=== PATIENT | female | born 1970 | race Caucasian/White ===

== ENCOUNTER 2016-10-19 22:48 | Inpatient (IN) | payer OTHER ==
[~2016-10-19] VITALS: Ht 154.9 cm; Wt 56.0 kg
--- NOTE | 2016-10-19 23:28 | DIAGNOSTIC IMAGING REPORT ---
PROCEDURE: XR ANKLE 3 OR 4 VIEWS - RIGHT INDICATION: TRAUMA/INJURY TECHNIQUE: Four views. COMPARISON: None. FINDINGS: There is a severely comminuted fracture of malleolar fracture with one third bone width of posterior lateral subluxation of the mortise joint. There is a comminuted spiral oblique fracture of the right distal fibula with 5 mm of posterior lateral displacement. There is an oblique fracture of the medial malleolus with 5 mm of lateral displacement and mild distraction. There is a minimally displaced cortical fracture of the posterior malleolus. IMPRESSION: 1. Severely comminuted and displaced trimalleolar fracture subluxation of the right ankle
[2016-10-20] VITALS (13 sets, daily range): BP systolic 94–146; BP diastolic 55–93
--- NOTE | 2016-10-20 01:43 | ED MAR SUMMARY ---
..... Medication Administration Record [facility] [address] [place] [address] Patient: BABS LOPEZ Visit ID: [id number] 45y, F Weight: 53.9 kg Height/Length: 61 in BMI: 22.5 ALLERGIES: No Known Drug Allergy Given 23:10 10/19/2016 Diomedes Dwyer Medication Administered: PERCOCET [PO] (OXYCODONE-ACETAMINOPHEN), Dose: 1 tab 5/325 mg Tablets PO. Medication Ordered: Percocet PO 5/325 mg (HIGH ALERT MEDICATION, NOW).
--- NOTE | 2016-10-20 01:43 | ED MED RECONCILIATION SUMMARY ---
Patient: BABS LOPEZ Medication Reconciliation Report [facility] VisitID: [id number] [address] [place] [address] 45y, F Registration Date/Time: 10/19/2016 Weight: 53.9 kg Height/Length: 61 in. BMI: 22.5 ALLERGIES: No Known Drug Allergy The patient's Home Medications are listed below: NONE. The source(s) of the original Home Medication information: Not obtained. The following Medications were given to the patient in the Emergency Department: Percocet [PO] PO 1 tab, administered: 10/19/2016 11:10:00 PM The following Medications were prescribed to the patient: None.
--- NOTE | 2016-10-20 01:43 | ED MED RECONCILIATION SUMMARY ---
Patient: BABS LOPEZ Medication Reconciliation Report [facility] VisitID: [id number] [address] [place] [address] 45y, F Registration Date/Time: 10/19/2016 Weight: 53.9 kg Height/Length: 61 in. BMI: 22.5 ALLERGIES: No Known Drug Allergy The patient's Home Medications are listed below: NONE. The source(s) of the original Home Medication information: Not obtained. The following Medications were given to the patient in the Emergency Department: Percocet [PO] PO 1 tab, administered: 10/19/2016 11:10:00 PM The following Medications were prescribed to the patient: None.
--- NOTE | 2016-10-20 01:43 | ED NURSING NOTES ---
Clinical Report - Nurses [facility] [address] [place] [address] 10/19/2016 22:50 Patient: BABS LOPEZ TRIAGE Triage time 23:00. Chief Complaint: INJURY TO RIGHT ANKLE. --23:02 Diomedes Dwyer 23:02 10/19/16. BP: 127/73. HR: 72. RR: 16. O2 saturation: 99%. Temp: 97.6 F. Pain level now: 02/07. --23:03 Ben Dwyer. Weight: 53.9 kg. Height/Length: 61 inches. BMI: 22.5. --23:01 Ben Dwyer. Medications None. --23:02 Diomedes Dwyer Allergies No Known Drug Allergy. --23:02 Diomedes Dwyer History Arrived by private vehicle. Historian: patient. Accompanied by family. This occurred just prior to arrival. Mechanism of injury: fell. Treatment TRAVEL OT: None. SOCIAL HX: Light tobacco smoker. Occasional alcohol use. No drug use. No infectious disease exposure. SELF HARM ASSESSMENT: A self harm assessment was performed. The patient answered "no" to the question "Have you recently felt down, depressed, or hopeless?", "Have you noticed less interest or pleasure in doing things?", "Do you have thoughts of harming or killing yourself?", "Are you here because you tried to hurt yourself?", "Have you ever tried to hurt yourself before today?", "Have you recently had thoughts about harming or killing others?" and "Do you have any dangerous items in your possession?". FALL RISK ASSESSMENT: Fall risk assessment completed. No fall risk identified. NUTRITIONAL RISK ASSESSMENT: The nutritional risk assessment revealed no deficiencies. FUNCTIONAL ASSESSMENT: Functional assessment: no impairments noted. LEARNING NEEDS ASSESSMENT: The learning needs assessment revealed no barriers. SKIN INTEGRITY ASSESSMENT: Skin integrity risk assessment completed. No skin integrity risk identified. --23:02 Diomedes Dwyer ( pt states she was playing in the yard and tripped and fell and twisted her ankle around 1800 today). --23:03 Diomedes Dwyer PROBLEMS: no known problems. ADDITIONAL SURGERIES: no known surgeries. PHYSICAL ASSESSMENT To room via wheelchair. GENERAL / NEURO / PSYCH: Oriented X 4. Alert. Appears in no acute distress. EXTREMITIES: Limited ROM present. Capillary refill is less than 2 seconds in the extremities. Extremity pulses are within normal limits. She was unable to bear weight. Neuro-vascular status intact to the extremity. Right ankle: tenderness, swelling and erythema. SKIN: Skin intact. Skin is warm and dry. --23:04 Ben Dwyer. NURSING PROGRESS NOTES Patient identifiers checked. Call light placed in reach. Side rails up x 1. Bed placed in lowest position. Brakes of bed on. --23:04 Diomedes Dwyer ( ice applied to site). --23:04 Diomedes Dwyer 23:10 10/19/2016 Percocet (Oxycodone-Acetaminophen) PO 5/325 mg Tablets 1 tab given. Allergies verified, confirmed 5 rights and sedative warning given to the patient and patient's family. --23:10 Diomedes Dwyer 00:14 10/20/2016 Site #1 started via IV in the right antecubital space with an 20g angiocath, with aseptic technique and good blood return; one attempt. Blood drawn: rainbow set. Labeled in the presence of the patient and sent to the lab. Saline lock flushed with 10 mL saline. --00:14 Ben Dwyer. Patient gowned. --00:14 Diomedes Dwyer ( urine sent to lab). --00:23 Ben Dwyer. Short leg lower extremity splint applied to right leg by tech. Distal pulses intact, sensation intact and motor within normal limits. --01:28 Diomedes Dwyer DISPOSITION / DISCHARGE Report was given to a nurse via a phone call. Report included patient's care, treatment, medications, reviewed medication reconcilliation, and condition (including any recent changes or anticipated changes). All questions were answered. Report was acknowledged and care was transferred. (Padma). --01:36 Diomedes Dwyer Transported via wheelchair by transport team. Patient's personal items include: shirt; items were placed in belongings bag, given to the patient and transported with the patient. --01:41 Diomedes Dwyer 01:41 10/20/16. BP: deferred. HR: 72. RR: 17. O2 saturation: 97%. Temp: deferred. Pain level now 09/07. --01:41 Diomedes Dwyer Departure time: :. --01:41 Diomedes Dwyer Locked/Released at 10/20/2016 1:42 by Diomedes Dwyer
--- NOTE | 2016-10-20 01:43 | ED NURSING NOTES ---
Clinical Report - Nurses [facility] [address] [place] [address] 10/19/2016 22:50 Patient: BABS LOPEZ TRIAGE Triage time 23:00. Chief Complaint: INJURY TO RIGHT ANKLE. --23:02 Diomedes Dwyer 23:02 10/19/16. BP: 127/73. HR: 72. RR: 16. O2 saturation: 99%. Temp: 97.6 F. Pain level now: 02/07. --23:03 Ben Dwyer. Weight: 53.9 kg. Height/Length: 61 inches. BMI: 22.5. --23:01 Ben Dwyer. Medications None. --23:02 Diomedes Dwyer Allergies No Known Drug Allergy. --23:02 Diomedes Dwyer History Arrived by private vehicle. Historian: patient. Accompanied by family. This occurred just prior to arrival. Mechanism of injury: fell. Treatment CLINICAL CYTOPATHOLOGIST: None. SOCIAL HX: Light tobacco smoker. Occasional alcohol use. No drug use. No infectious disease exposure. SELF HARM ASSESSMENT: A self harm assessment was performed. The patient answered "no" to the question "Have you recently felt down, depressed, or hopeless?", "Have you noticed less interest or pleasure in doing things?", "Do you have thoughts of harming or killing yourself?", "Are you here because you tried to hurt yourself?", "Have you ever tried to hurt yourself before today?", "Have you recently had thoughts about harming or killing others?" and "Do you have any dangerous items in your possession?". FALL RISK ASSESSMENT: Fall risk assessment completed. No fall risk identified. NUTRITIONAL RISK ASSESSMENT: The nutritional risk assessment revealed no deficiencies. FUNCTIONAL ASSESSMENT: Functional assessment: no impairments noted. LEARNING NEEDS ASSESSMENT: The learning needs assessment revealed no barriers. SKIN INTEGRITY ASSESSMENT: Skin integrity risk assessment completed. No skin integrity risk identified. --23:02 Diomedes Dwyer ( pt states she was playing in the yard and tripped and fell and twisted her ankle around 1800 today). --23:03 Diomedes Dwyer PROBLEMS: no known problems. ADDITIONAL SURGERIES: no known surgeries. PHYSICAL ASSESSMENT To room via wheelchair. GENERAL / NEURO / PSYCH: Oriented X 4. Alert. Appears in no acute distress. EXTREMITIES: Limited ROM present. Capillary refill is less than 2 seconds in the extremities. Extremity pulses are within normal limits. She was unable to bear weight. Neuro-vascular status intact to the extremity. Right ankle: tenderness, swelling and erythema. SKIN: Skin intact. Skin is warm and dry. --23:04 Ben Dwyer. NURSING PROGRESS NOTES Patient identifiers checked. Call light placed in reach. Side rails up x 1. Bed placed in lowest position. Brakes of bed on. --23:04 Diomedes Dwyer ( ice applied to site). --23:04 Diomedes Dwyer 23:10 10/19/2016 Percocet (Oxycodone-Acetaminophen) PO 5/325 mg Tablets 1 tab given. Allergies verified, confirmed 5 rights and sedative warning given to the patient and patient's family. --23:10 Diomedes Dwyer 00:14 10/20/2016 Site #1 started via IV in the right antecubital space with an 20g angiocath, with aseptic technique and good blood return; one attempt. Blood drawn: rainbow set. Labeled in the presence of the patient and sent to the lab. Saline lock flushed with 10 mL saline. --00:14 Ben Dwyer. Patient gowned. --00:14 Diomedes Dwyer ( urine sent to lab). --00:23 Ben Dwyer. Short leg lower extremity splint applied to right leg by tech. Distal pulses intact, sensation intact and motor within normal limits. --01:28 Diomedes Dwyer DISPOSITION / DISCHARGE Report was given to a nurse via a phone call. Report included patient's care, treatment, medications, reviewed medication reconcilliation, and condition (including any recent changes or anticipated changes). All questions were answered. Report was acknowledged and care was transferred. (Padma). --01:36 Diomedes Dwyer Transported via wheelchair by transport team. Patient's personal items include: shirt; items were placed in belongings bag, given to the patient and transported with the patient. --01:41 Diomedes Dwyer 01:41 10/20/16. BP: deferred. HR: 72. RR: 17. O2 saturation: 97%. Temp: deferred. Pain level now 09/07. --01:41 Diomedes Dwyer Departure time: :. --01:41 Diomedes Dwyer Locked/Released at 10/20/2016 1:42 by Diomedes Dwyer
--- NOTE | 2016-10-20 01:43 | ED MAR SUMMARY ---
..... Medication Administration Record [facility] [address] [place] [address] Patient: BABS LOPEZ Visit ID: [id number] 45y, F Weight: 53.9 kg Height/Length: 61 in BMI: 22.5 ALLERGIES: No Known Drug Allergy Given 23:10 10/19/2016 Diomedes Dwyer Medication Administered: PERCOCET [PO] (OXYCODONE-ACETAMINOPHEN), Dose: 1 tab 5/325 mg Tablets PO. Medication Ordered: Percocet PO 5/325 mg (HIGH ALERT MEDICATION, NOW).
--- NOTE | 2016-10-20 03:00 | HISTORY AND PHYSICAL ---
ADMITTED: 10/20/2016 CHIEF COMPLAINT: 1. Pain in the right ankle HISTORY OF PRESENT ILLNESS: This 45-year-old woman admits that she had several beers and some drinks of an alcoholic liquor called Fireball and was running around and felt a crack in her ankle and had severe pain in the right ankle. She was transported to our emergency department where x-rays have revealed a displaced comminuted bimalleolar ankle fracture. She is being admitted for that problem. Prior to suffering the fracture, she was able to walk without any walking aids and without any difficulty. She denies having any conditions which led to her having a weakened gait or limp. MEDICAL/SURGICAL HISTORY: She denies any history of surgery. She denies a medical history of any chronic disease. MEDICATIONS: ------- ALLERGIES: 1. SHE DENIES ANY ALLERGIES TO MEDICATIONS. SOCIAL HISTORY: As mentioned above. She is a 5-[id number]-day smoker and she admits to drinking two or three 22-ounce beers a day. She denies other liquor. She denies illicit drugs. FAMILY HISTORY: Unrelated to a right ankle fracture. REVIEW OF SYSTEMS: She denies a history of seizure, stroke or syncope. She denies a history of myocardial infarction, chest pain on exertion, or an irregular heartbeat. She has had some palpitations in the past, but that was years ago and there was no workup done. She denies a history of asthma, tuberculosis or recent pneumonia. She did have a bronchitis 3 weeks ago. She has a 13-[id number]-[id number] history of smoking cigarettes, smoking 1 pack per day between age 16 and presently. She has a history of diarrhea, 3 or 4 bowel movements a day for the last several weeks. She denies a history of hepatitis, pancreatitis, colitis. She denies a history of diabetes or hyperthyroidism. She denies a history of anemia, thrombocytopenia, bleeding disorders, or any history of cancer. PHYSICAL EXAMINATION: GENERAL: Shows a well-nourished, well-developed woman, alert, oriented, not in acute distress. HEENT: Her head is normocephalic, atraumatic. NECK: Supple and has no bruits. HEART: Regular, without murmur, rub, or gallop. LUNGS: Clear to auscultation throughout the lung selby without adventitious sounds, but with normal breath sounds. ABDOMEN: Without tenderness, masses, or organomegaly. EXTREMITIES: Both legs have multiple bruises. The right ankle is swollen, only moderately so. There is no tented skin. There are no open wounds. There is an excellent dorsalis pedis pulse. She has sensation in all of the toes. There is marked tenderness of the right ankle malleoli. LAB/IMAGING: Imaging studies: Right ankle x-ray taken in the right AP, lateral, and obliques shows a bimalleolar ankle fracture with lateral displacement of the talus and posterior displacement of the talus. There is comminution of the fibular fracture. Laboratory data: White count is 8000, hemoglobin 14, platelets 265,000. Basic metabolic profile shows a sodium of 142, potassium 4.3, chloride 105, carbon dioxide 25, calcium 8.5, BUN 9, creatinine 0.6, glucose 111. Plan: In the emergency department, the patient was placed in a posterior mold. Chest x-ray is being obtained. EKG shows normal sinus rhythm and a normal EKG. IMPRESSION: 1. Bimalleolar ankle fracture, displaced and comminuted. 2. A 09-[id number] smoker. 3. A month-history of diarrhea 3 or 4 times daily. PLAN: I requested a medical consultation preoperatively largely because of the history of diarrhea, which was new but prolonged. I explained the risks and benefits of open reduction and internal fixation of the ankle for a better result in terms of preventing arthritic change and a better chance of a painless ankle. I told her there is about a 20% chance she will have persistent pain. She may require removal of hardware in the future. I will go ahead with surgery today if the patient is medically cleared.
--- NOTE | 2016-10-20 03:27 | Consultation Report ---
Admission Admit Date Date of consultation 10/20/16 Surgical intervention planned for 10/20/2016. History Chief Complaint Right lower extremity pain with associated ankle/ malleolus fracture Diarrhea History of Present Illness Consultation Consulting; Black Bill M.D. Attending; Dr. Papito Wesley MD Reason for consultation: Preop risk stratification in the setting of alcohol and nicotine use Subjective history of loose stool, diarrhea for one week. Note Date: October 20, 2016 Admission Date: October 20, 2016 Hospital Day: 1 PCP: CARLOS A Alexander; Edgar Yi MD Status: observation Advanced Directive: FULL CODE Room: 202 Brief History: The patient is a 45-year-old white female with a significant past medical history of depression, anxiety, perhaps generalized anxiety disorder, prolonged smoking and alcohol use who presented to [facility] emergency department on the day of admission secondary to complaints of right lower extremity pain secondary to trauma. Evaluation at that time was consistent with tri-malleoli fracture with displacement of the right ankle joint. Patient was admitted by orthopedic surgery who planned on stabilizing the fracture on 10/20/2016. In addition to the above, patient had recent onset of acute diarrhea. Also history of prolonged smoking and alcohol use. Orthopedic consulted Internal Medicine given the medical complexity and need for recommended risk stratification for orthopedic surgical procedure. The patient was admitted by Papito Wesley M.D. for further evaluation and treatment. This pleasant female who had a recent onset of loose stool and diarrhea. She reported that the stool is nonbilious, nonbloody. She has frequent movements, mostly in the morning. Patient has no associated pain with defecation. The diarrhea is not voluminous, nonbloody, but frequent. Patient reports that she has not been eating well and has not been well supported nutritionally over the past several months. Patient states that she's been under additional stress due to the lack of work and home environment. Patient reports that she's been increasing her alcohol use over the past 3 months. Patient reports that she's had consistently 2-3 beers per day for the past 3 months. Patient reports that she needs to decrease her alcohol use and Epogen above. Patient denies a significant problem with alcohol use. Patient has no history of DTs or alcohol withdrawal symptoms or complications. Patient has never been involved in outpatient or inpatient alcohol withdrawal care. Patient reports that she's been smoking now for nearly 30 years. She smokes nearly a pack a day at this point in time. 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 Patient requests: None Patient History 1. Bimalleolar fracture of right ankle 2. Diarrhea 3. Alcohol use 4. Smoking addiction Social History PAST MEDICAL HISTORY Illnesses: 1. Depression, anxiety Allergies: 1. NKDA Medications: 1. none Surgery: 1. none Injuries: 1. right ankle and foot; see hpi Hospitalizations: 1. none FAMILY HISTORY Parents: 1. Father, 70's good health, 2. Mother, 70's , Alzheimer's Siblings: 1. Sister healthy Children: 1. Daughter 20 years old; Other significant family history: None SOCIAL HISTORY 1. Marital Status: Single/ 2. Employment History: [employer] 45 years, retired 2 years 3. Occupational health exposures: Dust, asbestos, lead, loud noises, heavy lifting HABITS 1. Tobacco: Currently smokes 1 pack per day for 20 years 2. Drugs: No prior or recent drug use 3. 2-3 beers per day for the past 2-3 months; prolonged more than 10 year alcohol use HEALTH SUPERVISION Item/Test Unknown IMMUNIZATIONS: 1. Pneumococcal: No previous 2. Influenza: Unknown 3. Tetanus: Unknown ADVANCED DIRECTIVES: 1. Living well: No 2. POLST: No 3. Code Status: FULL CODE 4. Durable Power Reporting Consultant Health care: Unknown Advance Directive None (Full Code) Health Maintenance unknown Medications and Allergies Medications Current Medications Sig/Lisbeth Start time Last Medication Dose Route Stop Time Status Admin Nicotine 21 MG QAM 10/20 0300 AC 10/20 TOP 0241 Sodium Chloride 1,000 ML ASDIRECTED 10/20 0245 AC 10/20 IV 0241 Oxycodone/ 1 TAB Q3H PRN 10/20 0130 AC Acetaminophen PO Morphine Sulfate See Dose Q4H PRN 10/20 0015 AC Insts (1) IV Ondansetron HCl 4 MG Q8H PRN 10/20 0015 AC IV Dose Instructions: (1)Morphine Sulfate: 2 - 4 MG Allergies Coded Allergies: NKA (10/20/16) Review of Systems Constitutional Denies: Fever, Chills, Sweats. Eyes Denies: Conjunctival Inflammation, Eyelid Inflammation. ENT Denies: Ear Discharge, Nose Pain. Respiratory Denies: SOB w/exertion, Wheezing. Cardiovascular Denies: Palpitations, Orthopnea. Gastrointestinal Diarrhea. Genitourinary Denies: Frequency, Incontinence, Hematuria. Skin Bruising (lower extremity). Neurological Denies: Weakness, Numbness, Seizures. Other Patient has a one pack per day history of 20 years. Currently drinking 20 ounce beers, 2-3 per day for the past 3 months. She reports that her diabetes been less than adequate. She has reports of depression. Patient is not currently working and is in a home situation is not ideal for her lifestyle. Physical Exam Vital Signs / I&Os Vital Signs Date Time Temp Pulse Resp B/P Pulse O2 O2 Flow FiO2 Ox Delivery Rate 10/20 0225 97.9 74 18 99/66 96 General Appearance Oriented X3, Cooperative, No acute distress HEENT Atraumatic, PERRLA, EOMI Lungs Clear to auscultation, Normal air movement Neck Supple, No JVD Cardiovascular Regular rate and rhythm, Normal S1 and S2 Abdomen Normal bowel sounds, Soft, No tenderness Extremities right-sided ankle and foot with rapid and stabilized by splint Skin No Breakdown, No Significant Lesions Neurological Normal speech, Normal tone, Cranial nerves intact Psych/Mental Status Mental status normal, Mood normal LAB Results Laboratory Tests 10/20 10/20 0005 0010 Chemistry Plasma Sodium (136 - 145 mmol/L) 142 Plasma Potassium (3.5 - 5.1 mmol/L) 4.3 Plasma Chloride (98 - 107 mmol/L) 105 CO2 (Enzymatic) (21 - 32 mmol/L) 25 BUN (7 - 18 mg/dL) 9 Creatinine (0.6 - 1.3 mg/dL) 0.6 Est GFR ( Amer) (mL/min) >60 Est GFR (Non-Af Amer) (mL/min) >60 Glucose (70 - 110 mg/dL) 111 Plasma Calcium (8.5 - 10.1 mg/dL) 8.5 Coagulation INR (0.8 - 1.2) 0.9 APTT (24 - 34 SECONDS) 26 Hematology WBC (4.5 - 11.5 K/uL) 8.0 RBC (4.00 - 5.20 M/uL) 4.15 Hgb (12.0 - 16.0 gm/dL) 14.0 Hct (36.0 - 46.0 %) 40.7 MCV (80 - 100 fL) 98 MCH (26 - 34 pg) 34 RDW (11.6 - 14.8 %) 13.9 Neut % (Auto) (50 - 75 %) 74.5 Lymph % (Auto) (25 - 40 %) 19.1 [place] % (Auto) (3 - 14 %) 5.2 Eos % (Auto) (0 - 4 %) 0.3 Baso % (Auto) (0 - 2 %) 0.9 Plt Count, EDTA (150 - 400 K/uL) 265 PUBS MCHC (31 - 37 g/dL) 34 Urines Urine Test NEGATIVE Imaging DATE OF EXAM(S): 10/19/16 PROCEDURE: XR ANKLE 3 OR 4 VIEWS - RIGHT IMPRESSION: 1. Severely comminuted and displaced trimalleolar fracture subluxation of the right ankle Assessment and Plan Problem List 1. Bimalleolar fracture of right ankle Status Acute Plan Acute onset fracture, right side malleolus. Consult with and seen by orthopedic surgery planning procedure today Monitor and follow-up. 2. Diarrhea Plan Diarrhea or loose stool has been ongoing for the past week. The stools are frequent in the morning. Stools have not been bloody or bilious. No sign of abdominal pain. Increased stool is in the setting of increased alcohol use over the past several months. Patient admits to having a poor diet plan. Differentials for the diarrhea include infectious, inflammatory versus noninflammatoryirritable bowel syndrome. Plan to order labs on the next sample of stool. This will include Hemoccult plus toxins for C. difficile. Infectious stool panel. Even though the patient has not had risk exposures for infectious agents of bowel will still need to rule out infectious orientation. Improving on her diet would be beneficial. Patient should be slowly advanced on her diet, postsurgicallyh. The loose stool or diarrhea should not interfere in the recommended surgical procedure through orthopedics. 3. Alcohol use Plan She has been using alcohol for a number years and recently has increased her intake. Patient is at risk for withdrawal from alcohol use. Patient should be on withdrawal protocol while inpatient. We'll go ahead and put in for a withdrawal protocol from alcohol. I do not believe that this will interfere with recommended orthopedic procedure. Patient should be on withdrawal protocol , postsurgical. Review of recommendations on alcohol cessation. Discussed outpatient Support for eliminating alcohol from diet. 4. Smoking addiction Plan Prolonged smoking history. Patient will be placed on educational parameters for a smoking cessation program. Patient will be given nicotine patch to aid in her withdrawal. Counseled on smoking cessation Appreciate the consult. Will follow along during the initial course of care. Current status:unstable fair Patient care time: Time spent in chart review, patient interview, physical exam, CPOE, and care documentation: 70 minutes Visit to patient today: 1 Complexity of care: Moderate E&M Codes Consultation: Initial Inpt-moderate/83052
--- NOTE | 2016-10-20 05:42 | DIAGNOSTIC IMAGING REPORT ---
PROCEDURE: XR CHEST 1 VIEW INDICATION: Preop left ankle surgery. Cough. TECHNIQUE: Portable AP view (0130 hours). COMPARISON: None. FINDINGS: Lungs are clear. Heart and mediastinum are normal. Thorax is normal. IMPRESSION: 1. Negative chest.
--- NOTE | 2016-10-20 05:58 | NUR ---
PT ARRIVED TO FLOOR AT 0140. ABLE TO TRANSFER FROM STRETCHER TO BED WITH PIVOT. RIGHT LEG ELEVATED ON PILLOW, GOOD CMS TO TOES. MEDICATED FOR PAIN ONE TIME DURING SHIFT. PT VERY TEARY AND STATED SHE WAS "SCARED ABOUT THE SURGERY". WHEN ASKED TO EXPLAIN MORE SHE STATED "I'M AFRAID OF BEING PUT UNDER. WHAT IF I DON'T WAKE UP?" REASSURANCE PROVIDED, BUT ALSO ALLOWED PT TO TALK OUT HER FEARS. PT FELT BETTER. LATER WHEN PAIN LEVEL INCREASED, PT AGAIN TEARY, ANTI-ANXIETY SUGGESTED AND PT READILY AGREED. DR. LAGUNAS NOTIFIED AND NEW ORDER RECEIVED. GOOD RELIEF NOTED. 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 ETOH WD PROTOCOL IN PLACE. PT SMOKES A PACK A DAY, NICOTINE PATCH IN PLACE ON RIGHT UPPER ARM. PT HAS BEEN NPO SINCE MIDNIGHT. STOOL SAMPLE STILL NEEDED.
--- NOTE | 2016-10-20 07:33 | NUR ---
PATIENT RESTING IN BED. SCHEDULED FOR SURGERY THIS AM. RLE ELEVATED, SPLINTED, AND WRAPPED WITH HOMA BANDAGE. STATES PAIN IS WELL CONTROLLED AT THIS TIME. SEE SHIFT ASSESSMENT FOR FURTHER DETAILS.
--- NOTE | 2016-10-20 08:32 | Progress Note ---
Subjective General Note Date: October 20, 2016 Admission Date: October 20, 2016 Hospital Day: 1 PCP: [PCP] Status: Inpatient Advanced Directive: FULL CODE Room: 202 Brief History: The patient is a 45-year-old white female with a significant past medical history of depression, anxiety, perhaps generalized anxiety disorder, prolonged smoking and alcohol use who presented to [facility] emergency department on the day of admission secondary to complaints of right lower extremity pain secondary to trauma. Evaluation at that time was consistent with tri-malleoli fracture with displacement of the right ankle joint. Patient was admitted by orthopedic surgery who planned on stabilizing the fracture on 10/20/2016. In addition to the above, patient had recent onset of acute diarrhea. Also history of prolonged smoking and alcohol use. Orthopedic consulted Internal Medicine given the medical complexity and need for recommended risk stratification for orthopedic surgical procedure. The patient was admitted by Papito Wesley M.D. for further evaluation and treatment. For other history present illness, past medical history, family history, social history, review of systems, and admission physical examination please see the patient's history and physical examination and ER visit note in the patient's medical record. Subjective: The patient states doing well except ankle pain. Wishes improved pain control. Patient requests: Improved pain control Medications and Allergies Medications Current Medications Sig/Lisbeth Start time Last Medication Dose Route Stop Time Status Admin Multivit/ 1 TAB DAILY 10/21 0900 AC Folic Acid/Iron PO Thiamine HCl 100 MG DAILY 10/21 0900 AC PO Famotidine/Sodium 50 ML Q12HR 10/20 0900 AC Chloride IV Diazepam 2.5 MG Q8H PRN 10/20 0445 AC 10/20 IV 0450 Ondansetron HCl 4 MG Q6H PRN 10/20 0345 AC IV Diazepam 5 MG PRN PRN 10/20 0330 AC IV Multivitamins 10 ML ONCE ONE 10/20 0330 AC 10/20 Thiamine HCl 100 MG IV 10/20 1129 0506 Folic Acid 1 MG Sodium Chloride 500 ML Nicotine 21 MG QAM 10/20 0300 AC 10/20 TOP 0802 Sodium Chloride 1,000 ML ASDIRECTED 10/20 0245 AC 10/20 IV 0241 Oxycodone/ 1 TAB Q3H PRN 10/20 0130 AC Acetaminophen PO Morphine Sulfate See Dose Q4H PRN 10/20 0015 AC 10/20 Insts (1) IV 0759 Dose Instructions: (1)Morphine Sulfate: 2 - 4 MG Allergies Coded Allergies: NKA (10/20/16) Physical Exam Vital Signs / I&Os Vital Signs Date Time Temp Pulse Resp B/P Pulse O2 O2 Flow FiO2 Ox Delivery Rate 10/20 0735 95 10/20 0626 98.1 69 19 94/55 95 10/20 0225 97.9 74 18 99/66 96 10/20 0215 Room Air General Appearance Alert, Oriented X3, Cooperative, No acute distress Lungs Clear to auscultation, Normal air movement Cardiovascular Regular rate and rhythm, Normal S1 and S2, No murmurs, gallops, rubs Abdomen Normal bowel sounds, Soft Extremities No cyanosis, No clubbing, Splint (R) lower leg Neurological Cranial nerves intact, No lateralizing signs Psych/Mental Status Mental status normal, Mood normal LAB Results Laboratory Tests 10/20 10/20 10/20 0010 0005 0005 Chemistry Plasma Sodium (136 - 145 mmol/L) 142 Plasma Potassium (3.5 - 5.1 mmol/L) 4.3 Plasma Chloride (98 - 107 mmol/L) 105 CO2 (Enzymatic) (21 - 32 mmol/L) 25 BUN (7 - 18 mg/dL) 9 Creatinine (0.6 - 1.3 mg/dL) 0.6 Est GFR ( Amer) (mL/min) >60 Est GFR (Non-Af Amer) (mL/min) >60 Glucose (70 - 110 mg/dL) 111 Plasma Calcium (8.5 - 10.1 mg/dL) 8.5 Plasma Magnesium (1.8 - 2.4 mg/dL) 2.0 Coagulation INR (0.8 - 1.2) 0.9 APTT (24 - 34 SECONDS) 26 Hematology WBC (4.5 - 11.5 K/uL) 8.0 RBC (4.00 - 5.20 M/uL) 4.15 Hgb (12.0 - 16.0 gm/dL) 14.0 Hct (36.0 - 46.0 %) 40.7 MCV (80 - 100 fL) 98 MCH (26 - 34 pg) 34 RDW (11.6 - 14.8 %) 13.9 Neut % (Auto) (50 - 75 %) 74.5 Lymph % (Auto) (25 - 40 %) 19.1 [place] % (Auto) (3 - 14 %) 5.2 Eos % (Auto) (0 - 4 %) 0.3 Baso % (Auto) (0 - 2 %) 0.9 Plt Count, EDTA (150 - 400 K/uL) 265 PUBS MCHC (31 - 37 g/dL) 34 Urines Urine Test NEGATIVE Microbiology Date/Time Procedure - Status Source Growth 10/20 UNK Escherichia coli Shiga Toxins EIA - COLB STOOL 10/20 UNK Campylobacter Culture - COLB STOOL 10/20 UNK Salmonella/Shigella Culture - COLB STOOL 10/20 UNK Clostridium difficile Toxin A & B - COLB STOOL 10/20 UNK Specimen Source - COLB STOOL 10/20 UNK Stool Leukocytes - COLB STOOL Assessment and Plan Problem List 1. Bimalleolar fracture of right ankle Status Acute Plan Follow up orthopedics. 2. Diarrhea Plan Not problematic. No BM today. Monitor 3. Alcohol use Plan Monitor for ETOH withdrawal. No signs of alcohol withdrawal at this time. 4. Smoking addiction Plan Smoking cessation education Cayla diego Current status: Fair, stable Anticipated discharge date: 2 days Anticipated discharge placement: Home Patient care time: Time spent in chart review, patient interview, physical exam, CPOE, and care documentation: 25 minutes Visit to patient today: 1 Complexity of care: Moderate E&M Codes Rounding: Inpt-Moderate/[id number]
--- NOTE | 2016-10-20 08:49 | ED CLINICAL REPORT ---
Clinical Report - Physicians/Mid Levels [facility] [address] [place] [address] 10/19/2016 22:50 Patient: BABS LOPEZ Time Seen: 2300. Arrived- By private vehicle. Historian- patient. HISTORY OF PRESENT ILLNESS Chief Complaint: Injury to the right ankle. The injury happened just prior to arrival today. The patient sustained a twisting injury. Occurred at home. Patient is experiencing severe pain. Patient denies injury to the head or neck. No other injury. REVIEW OF SYSTEMS The patient complains of pain on weight bearing. She has had swelling. No numbness or skin laceration. All systems otherwise negative, except as recorded above. PAST HISTORY See nurses notes. Tetanus immunization status is up-to-date. Problems: no known problems. Additional Surgeries: no known surgeries. Medications: None. Allergies: No Known Drug Allergy. ADDITIONAL NOTES The nursing notes have been reviewed. PHYSICAL EXAM Vital Signs: 10/19/2016 23:02 BP: 127/73. HR: 72. RR: 16. O2 saturation: 99%. Temp: 97.6 F. Pain level now: 8/10. Blood pressure normal. Oxygen saturation not normal. Appearance: Alert. Oriented X3. Patient in mild distress. Head: Head atraumatic. Eyes: Pupils equal, round and reactive to light. Eyes normal inspection. ENT: Ears normal. Nose normal. Pharynx normal. Neck: Normal inspection. Neck supple. No decreased ROM in the neck. C-spine non-tender. No vertebral tenderness. CVS: Normal heart rate and rhythm. Heart sounds normal. Pulses normal. Respiratory: No respiratory distress. Breath sounds normal. Chest nontender. No rales, rhonchi or wheezes. Abdomen: No visible injury. Soft and nontender. Bowel sounds normal. No mass. Back: Normal inspection. No tenderness. ROM normal. Skin: Skin intact. Skin warm and dry. Extremities: (obvious deformity of the right ankle. Ankle appears to be inverted slightly. Moderate tenderness to the bilateral malleolus. patient is able to wiggle toes. Capillary refill is less than 3 seconds. Sensation is intact. Compartments are soft. Ecchymosis to the posterior ankle. Compartments are soft. Bony abnormality noted to the medial and lateral aspect of the malleolus. Rest of the lower extremity is nontender. No tenderness to the knee.). Neuro, Vascular and Tendons: Vascular status intact. Sensation intact. Motor intact. Gait: Gait not tested due to pain. She was unable to bear weight. Neuro: Oriented X 3. No motor deficit. No sensory deficit. LABS, X-RAYS, AND EKG Chest X-ray: (PROCEDURE: XR CHEST 1 VIEW INDICATION: Preop left ankle surgery. Cough. TECHNIQUE: Portable AP view (0130 hours). COMPARISON: None. FINDINGS: Lungs are clear. Heart and mediastinum are normal. Thorax is normal. IMPRESSION: 1. Negative chest.). Views: PA and lateral. The X-rays were independently viewed by me and interpreted by the radiologist. The X-rays were discussed with the radiologist (Via PACS). Rt Ankle X-ray: (bimalleolar fracture with moderate displacement. Surrounding soft tissue edema.). Views: 3 view ankle series, AP, lateral, mortise and oblique. Technique: good. The X-rays were independently viewed by me and interpreted contemporaneously by me. Prior films were not available for comparison. Laboratory Tests: Urine: (RAY: 10/20/2016 00:10) ( Mscvd 10/20/2016 01:08) Final results Test Result Flag Units (Reference) URINE NEGATIVE CBC w Diff: (RAY: 10/20/2016 00:05) ( MsgRcvd 10/20/2016 00:17) Final results Test Result Flag Units (Reference) WHITE BLOOD COUNT 8.0 K/uL (4.5-11.5) RED BLOOD COUNT 4.15 M/uL (4.00-5.20) HEMOGLOBIN 14.0 gm/dL (12.0-16.0) HEMATOCRIT 40.7 % (36.0-46.0) MEAN CELL VOLUME 98 fL (80-100) MEAN CORPUSCULAR HGB 34 pg (26-34) MEAN CORPUSCULAR HGB CONC 34 g/dL (31-37) RED CELL DISTRIBUTION WIDTH 13.9 % (11.6-14.8) PLATELET COUNT 265 K/uL (150-400) NEUTROPHIL % 74.5 % (50-75) LYMPH % 19.1 L % (25-40) MONO % 5.2 % (3-14) EOSINOPHIL % 0.3 % (0-4) BASOPHIL % 0.9 % (0-2) PT with INR: (RAY: 10/20/2016 00:05) ( [facility] 10/20/2016 01:27) Final results Test Result Flag Units (Reference) INR 0.9 (0.8-1.2) Low Intensity Therapy: INR 1.5-2.0 PT range 18.5-23.1Mod.Intensity Therapy: INR 2.0-3.0 PT range 23.1-31.5High Intensity Therapy: INR 2.5-3.5 PT range 27.4-35.5High Intensity Therapy 2: INR 3.0-4.0 PT range 31.5-39.3 APTT 26 SECONDS (24-34) Magnesium: (RAY: 10/20/2016 00:05) ( [facility] [place]:50) Final results Test Result Flag Units (Reference) MAGNESIUM 2.0 mg/dL (1.8-2.4) BMP: (RAY: 10/20/2016 00:05) ( [facility] [place] 10/20/2016 00:26) Final results Test Result Flag Units (Reference) GLUCOSE 111 H mg/dL (70-110) BUN 9 mg/dL (7-18) CREATININE 0.6 mg/dL (0.6-1.3) Estimated GFR >60 mL/min Estimated GFR- >60 mL/min Note: Persistent reduction over 3 months in eGFR<60 mL/min/1.73 m2 defines CKD. Patients with eGFR values>=60 mL/min/1.73 m2 may also have CKD if evidence ofpersistent proteinuria. Additional information may be foundat www.kidney.org. SODIUM 142 mmol/L (136-145) POTASSIUM 4.3 mmol/L (3.5-5.1) CHLORIDE 105 mmol/L (98-107) CARBON DIOXIDE 25 mmol/L (21-32) CALCIUM 8.5 mg/dL (8.5-10.1) . PROGRESS AND PROCEDURES Course of Care: the patient is a pleasant 45-year-old female with past medical history significant for smoking presented for eval used to right-sided ankle pain. On examination, there is a gross deformity to the ankle however does not appear to be neurovascularly compromised. There is also only a slight deformityon gross extraction that does not needemergent reduction here in the emergency department. Patient will be evaluated with radiographs the ankle as well as given pain medication while here in the emergency department. Patient is agreeable to the treatment plan. Had discussion with patient in regards to her ankle and likely need for surgical repair. The patient's workup was remarkable for a significant right-sided ankle fracture. Patient with bimalleolar fracture and moderate displacement. Because of the fracture, orthopedic surgery will be consult at. Patient likely will need surgery however will consult orthopedic surgery further recommendations. Orthopedic surgery has been consult. Orthopedic surgery has reviewed the images and will see the patient in the emergency department shortly. No other recommendations made. Discussed with the patient her workup here in the emergency department including diagnosis and plan of care. All questions have been answered. The patient expressed understanding of these instructions and was agreeable to them. The patient will be admitted for possible surgery earlier on in the morning. Patient is nothing by mouth. Pain medication has been provided. Symptoms have improved while here in the emergency department. Patient continues to be neurovascularly intact. No evidence of compartment syndrome at this time. Patient is stable for patient. Laboratory studies had been ordered for preoperative evaluation. Chest x-ray is also been ordered. I did not order the patient's EKG nor have I seen the EKG. Please see orthopedic surgery Or medicines note for interpretation and evaluation of the patient's EKG. Critical care performed (35 minutes). Time is exclusive of separately billable procedures. Time includes: direct patient care, patient reassessment, coordination of patient care, interpretation of data (laboratory data and chest xrays), review of patient's medical records, medical consultation, family consultation regarding treatment decisions and documentation of patient care. Disposition: Observation in Acute Care. (Electronically signed by Jakob Munroe Dr. 10/20/2016 8:49)
--- NOTE | 2016-10-20 11:47 | NUR ---
PT RECEIVED TO PACU AWAKE AND COMFORTABLE, DENIES PAIN OR NAUSEA. WARM BLANKETS FOR COMFORT. VSS. NOT ABLE TO MOVE LOWER EXTREMITIES AT THIS TIME, SENSING COLD AT T5 ON THE RIGHT T7 ON THE LEFT. RIGHT LEG ELEVATED ON PILLOW AND ICE BEHIND RIGHT KNEE.
--- NOTE | 2016-10-20 11:51 | NUR ---
NO ICE TO LLE PER DR SOUTH.
--- NOTE | 2016-10-20 11:57 | Postoperative Progress Note ---
Postop Progress Note Preoperate Diagnosis: Bimalleolar right ankle fracture Postoperative Diagnosis: same Surgeon: Papito Wesley MD Anesthesia: Spinal, Conscious Sedation Findings: Bimalleolar ankle fracure with comminution of the fibula Procedure: ORIF of right bimalleolar ankle fracture Complications? No Condition: Good EBL: 75ml Drain(s): none Blood Administered: none Specimen(s) removed? No Grafts or Implants? Yes Graft/Implant type: [employer] very low profile right lateral locking plate, cnacellous and corticla locking screws on lateral side. Two 4.0mm distally threaded 44mm malleolar screws on meedial side. . (See nursing notes for details of grafts/implants)
--- NOTE | 2016-10-20 12:19 | NUR ---
PT COMFORTABLE, RESTING WITH EYES CLOSED WHEN NOT STIMULATED. NO MOVEMENT OF LOWER EXTREMITIES YET. VSS.
--- NOTE | 2016-10-20 12:34 | NUR ---
GROSS MOVEMENT OF LEGS BILATERALLY. NO PAIN AND BLUNTED SENSATION TO TOUCH. VSS.
--- NOTE | 2016-10-20 12:43 | NUR ---
REPORT CALLED TO ACUTE CARE NURSE ANNALISA Decker PT READY FOR TRANSFER FROM PACU.
--- NOTE | 2016-10-20 12:58 | NUR ---
PATIENT RETURNED FROM PACU AT 1300. ALERT AND ORIENTED. RLE ELEVATED ON 2 PILLOWS. RLE SPLINTED AND WITH HOMA WRAP. ABLE TO WIGGLE TOES W/O PROBLEMS. CMS + TO R TOES. NOT TO LIFT HEAD UP FOR 2 MORE HOURS. PATIENT NOTIFIED OF THIS.
--- NOTE | 2016-10-20 13:18 | OPERATIVE REPORT ---
DATE OF SURGERY: 10/20/2016 SURGEON: Papito Wesley MD PREOPERATIVE DIAGNOSIS: 1. Bimalleolar right ankle fracture. POSTOPERATIVE DIAGNOSIS: 1. Bimalleolar right ankle fracture. PROCEDURE: 1. ORIF of a right bimalleolar ankle fracture ANESTHESIA: Spinal with conscious sedation. FINDINGS: Bimalleolar ankle fracture with comminution of the fibula. COMPLICATIONS: None. CONDITION: Good. ESTIMATED BLOOD LOSS: 75 mL DRAINS: None. FLUIDS: BLOOD ADMINISTERED: None. PATHOLOGY SPECIMEN: None. IMPLANTS: Grafts or implants were placed. These are from [employer]: A very low profile right lateral fibula locking plate, cancellous and cortical locking screws on the lateral side 3.5 mm, two 4.0 distally threaded 44 mm malleolar screws on the medial side. DESCRIPTION OF PROCEDURE: The patient was anesthetized with a spinal anesthetic in the operating room and she requested sedation, which was given to her. A rolled blanket was placed high on the right side of the patient to mildly internally rotate the ankle. The right leg was sterilely prepped, painted and draped. Before we started, we held a timeout and identified the patient by name. She was awakened, confirmed her name and we confirmed the site of surgery and the nature of surgery and her birthdate. All present agreed. The incisions over the medial and lateral side of the ankle were marked on the skin. The medial side was opened. Hemostasis was obtained with electrocautery. A tourniquet had been inflated at the start of the procedure. The medial side was opened. It was seen that there was periosteum folded into the fracture site and this was debrided back 3 mm. The medial malleolus was pulled down with a Hou retractor so we could see the inside of the joint. The upper proximal end of the fracture was lifted up on a sterile bulge or bump and the joint was allowed to subluxate. We looked inside. I could not see articular cartilage damage. Attention was then turned to the lateral side. Lateral side was opened sharply at the skin and then bluntly with subcutaneous dissection down to the bone. The periosteal edges were debrided back a couple of millimeters. The fracture was reduced and held with a bone reducing forceps. The appropriate size very low profile right lateral fibula plate was selected from the set and slid into place. With the image intensifier, we confirmed appropriate sizing and position of the plate. Then, a proximal cortical nonlocking screw was placed, pulling the plate against the bone and then distally a cancellous screw was placed, pulling the plate against the bone distally. Then, 2 additional locking screws were placed in the cortical bone proximal to the fracture and an additional cortical locking screw was placed in the cortex of the distal fragment and then 1 distal cancellous screw and 1 locking screw were placed in the distal fragment. The lateral side was irrigated out. Attention was returned to the medial side. This was reduced under direct vision with a sharp bone reducing forceps holding the fracture holding in place while 2 K-wires were put into position through the medial malleolus and advanced into the proximal half of the fracture in the distal tibia. These were checked on image intensifier for position. Two 44 mm distally threaded screws were screwed up into place over the guidewires. The assembly was checked under image intensifier and the position of the fracture was seen to be satisfactory. The screws medially and laterally were tightened down a final time. The medial side was irrigated out. Then, the wound was closed in layers with absorbable suture, except for the skin, which was closed with amarilis. The patient tolerated the procedure well and was placed in a splint and then brought from the operating room in good condition.
--- NOTE | 2016-10-20 13:29 | DIAGNOSTIC IMAGING REPORT ---
PROCEDURE: XR ANKLE 1 OR 2 VIEWS - RIGHT INDICATION: ANKLE FX, INTRA-OP TECHNIQUE: C-arm fluoroscopy provided for Dr. Wesley. Fluoroscopy time 32 seconds. Radiation dose 1.5 mgY.. COMPARISON: Right ankle x-ray 10/19/2016 FINDINGS: AP and lateral views demonstrate side plate and multiple screws overlying the distal fibula and two screws through the medial malleolus. There is satisfactory alignment and positioning of the bone fragments. Ankle mortise is normal. IMPRESSION: 1. C-arm fluoroscopy provided for right ankle ORIF performed by Dr. Wesley.
--- NOTE | 2016-10-20 13:31 | DIAGNOSTIC IMAGING REPORT ---
PROCEDURE: XR FLUOROSCOPY UP TO 1 HOUR INDICATION: ORIF R ANKLE USING FLUROP TECHNIQUE: C-arm fluoroscopy provided for Dr. Wesley. Fluoroscopy time 32 seconds. Radiation dose 1.5 mgY. COMPARISON: Right ankle x-ray 10/27/2016. FINDINGS: AP and lateral views demonstrate side plate and multiple screws overlying the distal fibula and two screws to the medial malleolus. There is satisfactory alignment and positioning of the bone fragments. Ankle mortise is normal. IMPRESSION: 1. C-arm fluoroscopy provided for right ankle ORIF performed by Dr. Wesley
--- NOTE | 2016-10-20 14:26 | NUR ---
PATIENT C/O 8/10 PAIN AT R ANKLE. PERCOCET GIVEN ORDERED. PHONE CALL TO DR. SOUTH AND MESSAGE LEFT REQUESTING IV PAIN MED FOR PATIENT SHE IS EXPECTED TO HAVE 1-2 DAY STAY IN HOSPITAL AND WILL NEED PAIN MANAGEMENT. AWAIT CALLBACK.
--- NOTE | 2016-10-20 17:31 | NUR ---
AT AROUND 1650 PT'S BOYFRIEND "MADAN" CAME TO FLOOR TO SEE PT AND WAS NOTICABLY STUMBLING AND SLURRING WORDS. HE WAS ALSO COMING BEHIND HUB DESK INSISTING STAFF TAKE RASPBERRIES TO EAT. [employer] SEALER NOTIFIED AND SECURITY CALLED AND INFORMED OF SITUATION. SECURITY STOOD BY ROOM WHILE THIS RN ASKED THE BOYFRIEND IF HE WAS INTOXICATED AND HE STATED YES. HE ASKED IF HE SHOULD LEAVE AND I INFORMED HIM THAT IT IS IN THE BEST INTEREST OF THE PT. HE AGREED. HE WAS COMPLIANT AND CALM. DID ATTEMPT TO TOUCH THIS RN AT THE LOWER BACK SIDE AND I TOOK A STEP BACK ASKING HIM TO PLEASE NOT TOUCH ME. SECURITY ESCORTED PT TO [facility] WHERE HE WAS ASKED TO STAY WHILE HE SOBERED UP AND HE WAS ASKED NOT TO DRIVE. PT STATED AFTER NAIMA LEFT THAT SHE DID NOT WANT HIM IN THE ROOM WHILE HE IS INTOXICATED BUT DID NOT WANT TO ASK HIM TO LEAVE BECAUSE SHE DID NOT WANT TO START AN ARGUMENT WITH HIM.
--- NOTE | 2016-10-20 22:47 | NUR ---
VSS. A&OX4. EMESIS X2. PERCOCET AND MORPHINE INEFFECTIVE FOR PAIN. NEW ORDERS FOR TORADOL AND DILAUID, EFFECTIVE FOR PAIN. CMS INTACT TO RLE. CALM AND COOPERATIVE WITH CARE. WCTM.
[2016-10-21 02:29] VITALS: BP 112/72
[2016-10-21 06:39] VITALS: BP 118/82
--- NOTE | 2016-10-21 07:39 | NUR ---
PATIENT SITTING UP IN BED. MD IN ROOM AND CHANGED RLE DRSG AND MADE CAST TO RLE. NWB TO RLE. SEE SHIFT ASSESSMENT FOR FURTHER DETAILS.
--- NOTE | 2016-10-21 08:06 | Progress Note ---
Subjective General She complained of pain that was not helped with percocet or 4mg of mophine and was put on toradol and dilaudid. Physical Exam Vital Signs / I&Os Vital Signs Date Time Temp Pulse Resp B/P Pulse O2 O2 Flow FiO2 Ox Delivery Rate 10/21 0742 94 10/21 0639 98.1 65 18 118/82 94 Room Air 10/21 0229 98.4 58 20 112/72 94 Room Air 10/21 0050 Room Air 95 10/20 2244 98.1 59 20 118/77 96 Room Air 10/20 1841 97.5 73 20 134/88 98 Room Air 10/20 1543 87 16 143/87 95 Room Air 10/20 1517 89 16 139/92 98 Room Air 10/20 1445 76 16 146/93 99 Room Air 10/20 1421 97.5 76 16 128/85 98 Room Air 10/20 1344 74 20 118/79 96 Room Air 10/20 1329 89 20 125/89 96 Room Air 10/20 1314 73 18 132/87 96 Room Air 10/20 1304 79 18 127/68 98 Room Air 10/20 1256 98.2 75 17 125/79 96 Room Air 10/20 1240 98.1 75 13 124/71 98 10/20 1235 75 14 114/71 97 10/20 1230 97.9 74 13 116/74 96 10/20 1225 71 13 109/69 94 10/20 1220 72 13 107/71 95 10/20 1215 72 13 104/69 95 10/20 1210 74 13 109/67 96 10/20 1205 73 13 112/70 96 10/20 1200 74 13 111/69 96 10/20 1155 75 13 116/75 96 10/20 1150 74 14 113/73 96 10/20 1145 76 12 115/72 96 10/20 1140 97.9 80 14 110/74 93 I&O 10/20 0800 10/20 1600 10/21 0000 Intake Total 621 1269 2030 Output Total 250 75 800 Balance 371 1194 1230 General Appearance Alert, Oriented X3, Cooperative, No acute distress, She had dilaudid 1 hour ago. Extremities There is moderate swelling in the toes. The toes are sensate. Assessment Additional Comments: Post op day 1 ORIF bimalleolar ankle fracture. Antibiotics completed. Physical therapy to evaluate. Move to oral analgesia as soon as possible. On enoxaparin.
[2016-10-21 10:08] VITALS: BP 132/86
--- NOTE | 2016-10-21 11:12 | NUR ---
PATIENT AMBULATING TO BATHROOM WITH FWW AND NWB ON RLE WITH SBA. PAIN CONTROLLED WITH PO OXYCODONE.
[2016-10-21 14:32] VITALS: BP 135/97
[2016-10-21 17:36] VITALS: BP 118/83
[2016-10-21 22:04] VITALS: BP 137/81
--- NOTE | 2016-10-21 22:35 | NUR ---
Pt A&O x4, able to make needs known, pleasant and cooperative during care. Lung sounds clear throughout, on RA. Abd soft, non-tender, BT present all quads. Trace edema present in LE, R>L. New cast on RLE in place w/o problem, CMS present, toes warm, cap refill <3 sec. C/o moderate-severe RLE pain, prn oxycodone administered x2 and prn ketorlac x1 all with effective results. Uses FWW and SBA for transfer to bathroom. VSS.
--- NOTE | 2016-10-22 01:54 | NUR ---
TOOK OVER THIS PATIENT'S CARE. SOME SWELLING PRESENT ON THE RIGHT TOES. SHE IS AWARE OF THE IMPORTANCE OF ELEVATING THE RIGHT LEG ON A PILLOW. PATIENT WAS REASSURED BY STAFF THAT SHE WILL BE KEPT ON ROUND THE CLOCK PAIN MEDS IF NEED BE. CALL [facility] WITHIN REACH.
[2016-10-22 02:04] VITALS: BP 130/92
[2016-10-22 06:14] VITALS: BP 120/72
--- NOTE | 2016-10-22 08:17 | Progress Note ---
Subjective General Afebrile No new c/o. Pain fairly well controlled with PO meds. Cast intact. NMV intact. Mild distal edema. Wants to go home. DC home.
--- NOTE | 2016-10-22 08:17 | Progress Note ---
Subjective General Afebrile No new c/o. Pain fairly well controlled with PO meds. Cast intact. NMV intact. Mild distal edema. Wants to go home. DC home.
[2016-10-22] MEDS ORDERED: OXAYDO5 MG PO (08:23)
--- NOTE | 2016-10-22 08:26 | Provider's Discharge Care Plan ---
Problem, Goal, Plan Problem List 1. Bimalleolar fracture of right ankle
--- NOTE | 2016-10-22 08:26 | Provider's Discharge Care Plan ---
Problem, Goal, Plan Problem List 1. Bimalleolar fracture of right ankle
--- NOTE | 2016-10-22 09:06 | DISCHARGE SUMMARY ---
ADMIT DATE: 10/20/2016 DISCHARGE DATE: 10/22/2016 DISCHARGE DIAGNOSIS: 1. Fracture of the ankle BRIEF HISTORY: The patient was in her usual state of good health when she suffered a fall and fractured her ankle. She was brought to the hospital here where she was admitted by Dr. Wesley. HOSPITAL COURSE: She was admitted and taken to surgery where she had repair of her ankle fracture. Postoperatively, no serious complications were encountered. By 2016, she was stable. She was afebrile. She wanted to be discharged home and was discharged to home in stable condition. At that time, her cast was intact. Her sensation, motor function and circulation were intact. DISCHARGE INSTRUCTIONS/MEDICATIONS: She had just mild distal edema and was discharged to home in stable condition. She will remain nonweightbearing. She has a scooter coming and has a walker that she is using right now and will return for followup in about [address] [facility]. Condition is stable. DISPOSITION: Home.
--- NOTE | 2016-10-22 11:32 | NUR ---
1030- discharge education completed. pt given written and verbal instructions and rx for pain medication. pt states understanding and denies further questions. both iv sites removed intact. 1100- pt left to home with her aunt.
== END 2016-10-22 11:00 | disposition home or self-care (01) | DRG 313 ==
LOC: ED SRH 22:48 → TRANS SRH 10-20 00:08 → ACUTE2 SRH 10-20 00:08
PROVIDERS: Orthopaedic Surgery; ADMIT Student in an Organized Health Care Education/Training Program
PROC: 0QSJ04Z Reposition Right Fibula with Internal Fixation Device, Open Approach (ICD-10-PCS; principal; 2016-10-20 09:15)
PROC: 0QSG04Z Reposition Right Tibia with Internal Fixation Device, Open Approach (ICD-10-PCS; principal; 2016-10-20 09:15)
DX: S82.841A Displaced bimalleolar fracture of right lower leg, initial encounter for closed fracture (principal); R19.7 Diarrhea, unspecified; F17.210 Nicotine dependence, cigarettes, uncomplicated; W19.XXXA Unspecified fall, initial encounter; Y92.007 Garden or yard of unspecified non-institutional (private) residence as the place of occurrence of the external cause; Y93.02 Activity, running; Y99.8 Other external cause status; Z72.89 Other problems related to lifestyle